=== PATIENT | male | born 1990 | race Caucasian/White ===

== ENCOUNTER 2021-09-26 18:11 | Inpatient (IN) | payer OTHER, SELFPAY ==
[2021-09-26 18:19] VITALS: BMI 29.2
[2021-09-26] MEDS: Cyanocobalamin (Vitamin B-12) 1,000 MCG TABLET 1000 MCG PO (21:07)
[2021-09-26] MEDS: hydrOXYzine HCL 25 MG TABLET PO (21:11)
[2021-09-26] MEDS: traZODone HCL 50 MG TABLET PO (21:11)
--- NOTE | 2021-09-26 22:24 | PC.ADMIT ---
Addendum entered by Lila Rodriguez RN 09/26/21 22:39: soon after arrival pt signed a 3 day notice. Original Note: PT is a 31 year old male that arrived on this unit at 18:35 via stretcher from [facility]. PT admitted on a conditional voluntary basis. PT has a history of anxiety and depression and has had recent life stressors related to his girlfriend cheating on him and breaking up with him and having to move back home with his mother. PT began to act erratic at work and his coworker brought him in to the ED where endorsed SI w/ out a specific plan. PT has a hx of a suicide attempt in 2017 after overdosing on Wellbutrin and was hospitalized at [facility]. PT has a history of substance abuse, most recently alcohol (5-6 beers daily) as well as nitrous and Kratom. Tox screen limited to cocaine and opiates and both were negative, COVID negative. VS stable, all legals signed, denies SI/HI, AH/VH, oriented to unit.
--- NOTE | 2021-09-26 22:57 | PC.NURSE ---
PT signed release for Mother however he would only like general updates of mental status given to her (release does specify this).
[2021-09-27 07:19] LABS: Cholesterol 192 mg/dL; HDL Cholesterol 34 mg/dL; LDL Cholesterol Calculated 135 mg/dl; Magnesium 2.1 mg/dL (1.6-2.6); Triglycerides 115 mg/dL
[2021-09-27 07:22] LABS: Estimated Average Glucose 85 mg/dL; Hemoglobin A1c % 4.6 %
[2021-09-27 07:40] LABS: Free T4 (Free Thyroxine) 1.01 ng/dL (0.71-1.85); Thyroid Stimulating Hormone 1.21 uIU/mL (0.32-4.0)
[2021-09-27] MEDS: hydrOXYzine HCL 25 MG TABLET PO ×2 (09:13→20:44)
[2021-09-27] MEDS: Folic Acid 1 MG TABLET PO (09:13)
[2021-09-27] MEDS: buPROPion HCl XL 150 MG TAB.ER.24H PO (09:13)
[2021-09-27] MEDS: Thiamine HCL 100 MG TABLET 50 MG PO (09:13)
[2021-09-27] MEDS: Cyanocobalamin (Vitamin B-12) 1,000 MCG TABLET 1000 MCG PO (09:14)
[2021-09-27 09:30] VITALS: BP 100/54; PULSE 74; TEMP 37
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
[2021-09-27 18:00] VITALS: BP 129/85; PULSE 75; RESP 18; TEMP 36.4; O2SAT 100
--- NOTE | 2021-09-27 22:45 | PC.NURSE ---
Pt. requested to speak with TW. His thoughts seemed ruminative about bad things in the past and he is paranoid about his safety on the unit. Reassured pt. that he is safe on the unit. He seemed particularly concerned that someone would hurt him while he was sleeping. He said that he is dependent on Nitrous Oxide and uses daily to escape for a while. Says that the reason he was brought here was that he became very paranoid at work. Admitted that he had used Nitrous Oxide that day during the work day.
--- NOTE | 2021-09-28 | ECG_ITS ---
Test Reason : EVALUATION Blood Pressure : / mmHG Vent. Rate : 076 BPM Atrial Rate : 076 BPM P-R Int : 132 ms QRS Dur : 092 ms QT Int : 372 ms P-R-T Axes : 042 055 046 degrees QTc Int : 418 ms Normal sinus rhythm Normal ECG No previous ECGs available Referred By: Luis Eduardo Nath Electronically Signed By:YOBANI MCARTHUR MD
[2021-09-28 06:00] VITALS: BP 130/80; PULSE 80; RESP 18; TEMP 36.4; O2SAT 99
[2021-09-28 06:28] LABS: Folate 16.8 ng/mL (> or = 4.0); Vitamin B12 289 pg/mL (200-900)
[2021-09-28] MEDS: Thiamine HCL 100 MG TABLET 50 MG PO (09:08)
[2021-09-28] MEDS: buPROPion HCl XL 150 MG TAB.ER.24H PO (09:08)
[2021-09-28] MEDS: Folic Acid 1 MG TABLET PO (09:08)
[2021-09-28] MEDS: Cyanocobalamin (Vitamin B-12) 1,000 MCG TABLET 1000 MCG PO (09:08)
--- NOTE | 2021-09-28 17:24 | P.PNPSI_ITS ---
Subjective Subjective Date of Service: 09/28/21 Reason For Visit: Schizophrenia Subjective Notes: Martinez Warning and Conditional Voluntary Healthcare Proxy: No Guardianship: No Medical Problems Affecting Mental Status: No Interim History: Patient seen and discussed with team. Patient evaluated today and upon interview he reports my memory is a little screwy, says he didnt remember calling his cousin. He has a headache. Craving nitrous oxide. Sleep was interrupted. Energy is pretty tired. Feels very off. Says he wants to discharge ying because he does not like missing work, describes himsef as a workaholic. Wants to trial zoloft to target sx of depression, anxiety, and PTSD. Says his anxiety is a 4/10, depression is a 5/10, I just want to feel better. In the milieu, patient is safe and appropriate in behavior. Denies SI/SIB/HI upon inquiry. Denies irritability or assaultive ideation. Says he feels safe. Medication Compliance: Yes Side effects from medications: No Attending Groups: Intermittent Review of Systems Acute medical concerns: No Medical Review of Systems: unchanged Mental Status Exam Mental Status Exam Narrative: A&O. Okay grooming, overweight. Poor eye contact, inattentive, distracted. No Tics or Tremors. No abnormal involuntary movements. Cooperative but difficult to engage, somewhat latent responses. Non-pressured speech, quiet volume. No dysarthria. Mood is ?depressed,? affect is blunted. Denies SI/SIB/HI upon inquiry. Denies A/VH or delusional thought content. Thoughts are slowed. No known cognitive or memory impairment. Insight/ Judgment limited but adequate. Diagnostics Vital Signs (24Hr): Vital Signs - 24 hr 09/27/21 18:00 09/28/21 06:00 Temperature 97.6 F 97.6 F Pulse Rate 75 80 Respiratory Rate 18 18 Blood Pressure 129/85 130/80 Pulse Oximetry 100 99 Oxygen Delivery Method Room Air Room Air BMI result Body Mass Index 29.2 Labs Labs: Laboratory Results - last 48 hr 09/27/21 09/27/21 09/27/21 06:32 06:32 06:32 Estimat Average Glucose 85 Hemoglobin A1c % 4.6 Magnesium 2.1 Triglycerides 115 Cholesterol 192 LDL Cholesterol, Calc 135 HDL Cholesterol 34 Vitamin B12 289 Folate 16.8 TSH 1.21 Free T4 1.01 Medications Medications Current Medications Acetaminophen (Acetaminophen 325 Mg Tablet) 650 mg PO Q6H PRN PRN Reason: Headache/Pain Mild Scale (1-3) Al Hydroxide/Mg Hydroxide (Magnesium Hydrox/Alum Hydrox 30 Ml Oral.Susp) 30 ml PO Q6H PRN PRN Reason: Heartburn/Nausea Bupropion HCl (Bupropion Hcl Xl 150 Mg Tab.Er.24h) 150 mg PO DAILY [facility] Last Admin: 09/28/21 09:08 Dose: 150 mg Cyanocobalamin (Cyanocobalamin (Vitamin B-12) 1,000 Mcg Tablet) 1,000 mcg PO DAILY [facility] Last Admin: 09/28/21 09:08 Dose: 1,000 mcg Folic Acid (Folic Acid 1 Mg Tablet) 1 mg PO DAILY [facility] Last Admin: 09/28/21 09:08 Dose: 1 mg Hydroxyzine HCl (Hydroxyzine Hcl 25 Mg Tablet) 25 mg PO Q6H PRN PRN Reason: Anxiety Last Admin: 09/27/21 20:44 Dose: 25 mg Ibuprofen (Ibuprofen 400 Mg Tablet) 400 mg PO Q6H PRN PRN Reason: mod-severe pain Magnesium Hydroxide (Milk Of Magnesia 30 Ml Oral.Susp) 30 ml PO DAILY PRN PRN Reason: Constipation Melatonin (Melatonin 3 Mg Tablet) 9 mg PO BEDTIME PRN PRN Reason: insomnia Nicotine Polacrilex (Nicotine Polacrilex 2 Mg Gum) 4 mg BUCCAL Q1H PRN PRN Reason: Nicotine Cravings Thiamine HCl (Thiamine Hcl 100 Mg Tablet) 50 mg PO DAILY [facility] Last Admin: 09/28/21 09:08 Dose: 50 mg Trazodone HCl (Trazodone Hcl 50 Mg Tablet) 50 mg PO BEDTIME PRN PRN Reason: Insomnia Last Admin: 09/26/21 21:11 Dose: 50 mg Allergies Allergies Allergy/AdvReac Type Severity Reaction Status Date / Time No Known Allergies Allergy Verified 09/26/21 18:18 Assessment & Plan Assessment & Plan (1) MDD (major depressive disorder), recurrent episode, moderate: Status: Acute Code(s): F33.1 - Major depressive disorder, recurrent, moderate (2) Alcohol use disorder, moderate, dependence: Status: Acute Code(s): F10.20 - Alcohol dependence, uncomplicated (3) HADLEY (generalized anxiety disorder): Status: Acute Code(s): F41.1 - Generalized anxiety disorder (4) Adverse effect of nitrous oxide: Status: Acute Code(s): T41.0X5A - Adverse effect of inhaled anesthetics, initial encounter Plan Pt is a 31 y.o. Male who carries a dx of polysubstance use, alcohol abuse, HADLEY. Pt arrived to [place] ED on 09/25/2021, brought in by a staff person from his job, presenting with anxiety, SI, and relapse on alcohol and nitrious oxide in context of recent break up with gf of 3 yrs. Now living with his mom and step- dad, who is aggressive when he drinks. Remote hx of IPLOC at [facility] in 2017. Hx of depression, has been on wellbutrin for some time, brief trials on SSRIs. 09/26: Start zoloft 50 mg for depression, sx of PTSD Q15 min safety checks, CV Monitor response to medications. Monitor for safety in the milieu. Discharge on stabilization. Patient seen. Chart reviewed. Discussed with team. Obtain collateral contact info?as needed I spent minutes with the patient and/or on the patient floor today, greater than?50% of which was spent counseling/coordinating care. Patient educated on: diagnosis, medication risk/benefits and therapeutic s trategies Reason for contiued inpatient stay Substantial Risk for: harm to self and med/psych decompensation
[2021-09-28 18:00] VITALS: BP 134/76; PULSE 71; RESP 14; TEMP 36.5
[2021-09-28] MEDS: Acetaminophen 325 MG TABLET 650 MG PO (20:42)
[2021-09-28] MEDS: Sertraline HCL 50 MG TABLET PO (20:42)
[2021-09-29 06:00] VITALS: BP 111/62; PULSE 78; RESP 16; TEMP 36.3; O2SAT 99
[2021-09-29] MEDS: Thiamine HCL 100 MG TABLET 50 MG PO (08:06)
[2021-09-29] MEDS: buPROPion HCl XL 150 MG TAB.ER.24H PO (08:07)
[2021-09-29] MEDS: Cyanocobalamin (Vitamin B-12) 1,000 MCG TABLET 1000 MCG PO (08:07)
[2021-09-29] MEDS: Folic Acid 1 MG TABLET PO (08:07)
[2021-09-29 16:45] VITALS: BP 133/83; PULSE 88; TEMP 37
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
[2021-09-29] MEDS: Sertraline HCL 50 MG TABLET PO (20:15)
[2021-09-29] MEDS: traZODone HCL 50 MG TABLET PO (20:16)
[2021-09-30 06:00] VITALS: BP 116/71; PULSE 84; RESP 18; TEMP 36.3; O2SAT 97
[2021-09-30] MEDS: Cyanocobalamin (Vitamin B-12) 1,000 MCG TABLET 1000 MCG PO (08:19)
[2021-09-30] MEDS: buPROPion HCl XL 150 MG TAB.ER.24H PO (08:19)
[2021-09-30] MEDS: Folic Acid 1 MG TABLET PO (08:19)
[2021-09-30] MEDS: Thiamine HCL 100 MG TABLET 50 MG PO (08:20)
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
== END 2021-09-30 14:05 | disposition home or self-care (01) | DRG 751 ==
PROVIDERS: Registered Nurse; Admitting Provider Psychiatry & Neurology Psychiatry; Visit Provider Psychiatry & Neurology Psychiatry
DX: F33.1 Major depressive disorder, recurrent, moderate (principal); F10.20 Alcohol dependence, uncomplicated; F17.210 Nicotine dependence, cigarettes, uncomplicated; F19.10 Other psychoactive substance abuse, uncomplicated; F41.1 Generalized anxiety disorder; Z71.6 Tobacco abuse counseling; Z79.899 Other long term (current) drug therapy
CPT/HCPCS: 36415; 80061; 82607; 82746; 83036; 83735; 84439; 84443; 93005